=== PATIENT | male | born 1970 | race African-American/Black ===

== ENCOUNTER 2018-01-27 22:12 | Emergency (ER) | payer SELFPAY ==
[~2018-01-27] VITALS: Ht 182.9 cm; Wt 84.1 kg
[~2018-01-27 22:12] MED LIST: ASPI81TA11 PO; GLUCTAB PO; GLYB1TAB51 PO; LISI-357 PO; LISI-360 PO; NOVONP2 SQ; NOVORP2 SQ
[2018-01-27 22:22] VITALS: BP 164/86; PULSE 92; RESP 16; TEMP 98.1; O2SAT 99
== END 2018-01-27 22:40 | disposition left against medical advice (07) ==
LOC: NETRI 22:12
DX: Z03.89 Encounter for observation for other suspected diseases and conditions ruled out (principal)
CPT/HCPCS: 99281